=== PATIENT | female | born 1985 ===

== ENCOUNTER 2017-03-03 08:30 | Inpatient (IN) | payer OTHER ==
[~2017-03-03] VITALS: Ht 149.9 cm; Wt 72.6 kg
--- NOTE | 2017-03-03 09:09 | History & Physical ---
General Information and HPI MD Statement: I have seen and personally examined SARA PRATT and documented this H&P. The patient is a 31 year old female at [39] weeks and [2] days gestation who presented with a chief complaint of [contractions]. Source of Information: patient, family Exam Limitations: no limitations History of Present Illness: 31 yo at 39w2d presenting for contractions. Patient describes having worsening contractions overnight into this morning. Every 5-7 min. Some bloody show. Denies LOF. 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 Of note patient reports not having lesions when she was diagnosed, however did have itching and some burning. Today she reports some vaginal itching and denies having any lesions that she has noted. Since presenting, contractions have been getting stronger and more frequent. 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 Para: 0 Last Menstrual Period: 05/29/16 Past oral surgery technician History: none Medical History Endocrine: NONE (GDM) Other Medical Hx: Herpes Surgical History Pertinent Surgical History: none Past Family/Social History Psychosocial History Smoking Status: Never Smoked Review of Systems Review of Systems: Negative other than mentioned in HPI Exam & Diagnostic Data Last 24 Hrs of Vital Signs/I&O Intake & Output 03/03 1600 03/03 0800 03/03 0000 Intake Total Output Total Balance Patient 72.575 kg Weight 124/76 74 97% 20 Obstetric Exam Wgt Gained During : 15lbs Pelvimetry: adequate Dilation (cm): 6 Effacement (%): 10 Station: -2 Membranes: SROM (bloody) Fluid: bloody show Fundal Height (cm): 38 Multiple Gestation? No Contractions: Q4 min Infant #1 - FHR Baseline: 145 Category: 1 Estimated Weight: 3400 Presentation: cephalic by US Patient for Induction? No Physical Exam: In pain with every contractions RRR CTAB Gravid, NT abd +1 pitting edema Pelvic: Speculum exam revealed suspicious looking denuded lesion on right vaginal sidewall Labs Blood Type & Rh: B+ Antibody Screen: neg Hct/Hgb & Platelets #1: 39.4/13/261 Hct/Hgb & Platelets #2: 37.3/12.2/312 Rubella: immune VDRL #1: NR VDRL #2: NR HbsAg: NR HIV #1: NR HIV #2 NR 1 Hr P Group B Strep: neg Initial Ultrasound: WNL Anatomy Ultrasound: WNL Genetic Testing: NA Last 24 Hrs of Labs/Jv: Microbiology 03/03 0844 URINE ROUT: Urine Culture - COLB Assessment/Plan Assessment/Plan: 31 yo at 39w2d who presents in active labor with active HSV outbreak Patient was counseled about risk of transmission of HSV with suspicion of active lesion. Recommend for route of delivery to decreased transmission risk. R/B/A were discussed regarding including but not limited to bleeding, infection, damage to surrounding organs and possible need for transfusion and/or hysterectomy. Patient agreed to proceed with primary LTCS for HSV outbreak. NPO Labs pending IVF - D5 LR given GDM Anesthesia, peds, and OB assist contacted Pre-op antibiotics for prophx To OR when ready. As Ranked By This Provider Problem List: 1. HSV-2 infection complicating 2. Active labor at term 3. GDM (gestational diabetes mellitus) Core Measures/Miscellaneous Venous Thromboembolism VTE Risk Factors: / VTE Contraindications: No Contraindications VTE Diagnosis: No Beta Yumiko Is Beta Yumiko a Home Med? No Antibiotics Is Patient on Antibiotics? No Attending MD Review Statement Attending Statement Attending MD Statement: examined this patient, discussed with family, reviewed EMR data (avail), discussed w/nursing
--- NOTE | 2017-03-03 10:38 | Operative Report ---
Operative/Inv Procedure Report Surgery Date: 03/03/17 Name of Procedure: Low transverse section Pre-Operative Diagnosis: IUP at 39w2d GDM (diet controlled) HSV (active lesion) Post-Operative Diagnosis: Same S/p LTCS Estimated Blood Loss: 600 ml Surgeon/Bilingual Interpreter: MD Flavio Farmer MD Anesthesia: block IV Fluids: 2 L Urine Output: 400cc Specimens: placenta to pathology Complications: none Condition: stable Operative Indication: IUP @ 39w2d in active labor. On inspection noted to have prodromal symptoms and lesion suspicious for active HSV (on suppresive therapy). Patient counseled and wishes to proceed for priamry LTCS for prevention of transmission. Operative/Procedure Note Note: The risks, benefits, complications, treatment options, and expected outcomes were discussed with the patient. The patient concurred with the proposed plan, giving informed consent. The site of surgery properly noted/marked. The patient was taken to Operating Room, identified and the procedure verified as primary C- Section Delivery. A Time Out was held and the above information confirmed. After induction of anesthesia, the patient was prepped and draped in the usual sterile manner while placed in a dorsal supine position with a left lateral tilt. A mckeon catheter was also placed per nursing. Preoperative antibiotics were administered and an allis test was performed yielding adequate anesthesia. A Pfannenstiel incision was made and carried down through the subcutaneous tissue to the fascia. Fascial incision was made and extended transversely. The fascia was grasped with Clari clamps and from the underlying rectus tissue superiorly and inferiorly. The peritoneum was identified, found to be free of adherent bowl and entered sharply with Metzenbaums. Peritoneal incision was extended longitudinally. The vesico-uterine peritoneum was identified and bladder blade was inserted. The vesico-uterine peritoneum was incised transversely and the bladder flap was bluntly freed from the lower uterine segment. The bladder blade was reinserted to keep the bladder out of the operative field. A low transverse uterine incision was made with knife and extended by finger fracture. The amniotic sac was ruptured bluntly and the infant was noted to be in cephalic position. The head was brought to the incision and elevated out of the pelvis. The patient delivered a single viable male without difficulty. weighed 2830 grams with scores of 8/9 at one and five minutes respectively. The umbilical cord was clamped and cut. The placenta was removed intact and appeared normal and was sent to pathology. The uterus was exteriorized. The uterine outline, tubes and ovaries appeared normal. The uterine incision was closed with running locked sutures of #1 Chromic. Hemostasis was observed. The uterus was returned to the abdominal cavity. Incision was reinspected and good hemostasis was noted. The abdominal cavity was irrigated to remove clots. The peritoneum was reapproximated with 2-0 vicryl in running fashion. The fascia was then reapproximated with running sutures of #1 Vicryl in running fashion and tied at midline. The subcutaneous fat was reapproximate with 2-0 plain gut in running fashion and skin was reapproximated with 4-0 monocryl. Instrument, sponge, and needle counts were correct prior the abdominal closure and at the conclusion of the case. Pt tolerated procedure well and Dr. Preston discussed with family that pt was stable and in good condition after the procedure. Findings: Normal uterus, tubes and ovaries Clear pelvis
[2017-03-03 11:44] VITALS: BP 110/62
[2017-03-04 08:38] LABS: ABSOLUTE BASOPHIL COUNT 0.1 /CUMM (0.0-0.2); ABSOLUTE EOSINOPHIL COUNT 0.1 /CUMM (0.0-0.7); ABSOLUTE GRANULOCYTE CT 8.4 /CUMM (1.4-6.5); ABSOLUTE LYMPH COUNT 3.2 /CUMM (1.2-3.4); ABSOLUTE MONOCYTE COUNT 0.7 /CUMM (0.10-0.60); BASOPHIL % 0.4 % (0.0-2.0); EOSINOPHIL % 1.1 % (0-5); GRANULOCYTE % 67.2 % (42.2-75.2); MEAN CORPUSCULAR HGB 28.1 PG (27.0-31.0); MEAN CORPUSCULAR HGB CONC 32.6 G/DL (33.0-37.0); MEAN CORPUSCULAR VOLUME 86.2 FL (81.0-99.0); PLATELET COUNT 247 /CUMM (130-400); RED BLOOD CELL CT 3.62 /CUMM (4.20-5.40); WHITE BLOOD CELL COUNT 12.4 /CUMM (4.8-10.8)
[2017-03-04 08:41] LABS: HEMATOCRIT 31.2 % (37-47)
--- NOTE | 2017-03-04 12:22 | PN- Post Delivery/GYN ---
Subjective Subjective: NO COMPLAINTS Objective Last 24 Hrs of Vital Signs/I&O PER PAPER CHART Physical Exam: THIN FEMALE ABD SOFT NT INCISION CDI EXT -HOMANS -EDEMA LOCHIA MINIMAL Assessment/Plan Assessment/Plan ASSESS S/P C/S PLAN ADVANCE DIET
--- NOTE | 2017-03-05 12:36 | PN- Post Delivery/GYN ---
Subjective Subjective: NO COMPLAINTS Objective Last 24 Hrs of Vital Signs/I&O VSS ABD SOFT NT INCISION CDI EXT-HOMANS Assessment/Plan Assessment/Plan ASSESS S/P C/S PLAN CONT PPC
[2017-03-06] MEDS ORDERED: FERROUS GLUCON324 M2 PO (09:24)
[2017-03-06] MEDS ORDERED: PERCOCET 5-3251 EACH PO (09:24)
[2017-03-06] MEDS ORDERED: IBUPROFEN800 M1 PO (09:24)
== END 2017-03-06 10:53 | DRG 765 ==
LOC: GNO 08:30
PROVIDERS: Obstetrics & Gynecology; ADMIT Specialist
PROC: 10D00Z1 Extraction of Products of Conception, Low, Open Approach (ICD-10-PCS; principal; 2017-03-03)
DX: O34.211 Maternal care for low transverse scar from previous cesarean delivery (principal); O98.52 Other viral diseases complicating childbirth; O24.420 Gestational diabetes mellitus in childbirth, diet controlled; N85.8 Other specified noninflammatory disorders of uterus; Z3A.39 39 weeks gestation of pregnancy; Z37.0 Single live birth; A60.00 Herpesviral infection of urogenital system, unspecified
CPT/HCPCS: GNOS; 36415; 87086; J0690; J1650; J1885; J2765; J3490; J7120